=== PATIENT | female | born 1945 | race Hispanic/Latino ===

== ENCOUNTER 2019-02-21 07:46 | Day surgery (SDC) | payer MEDICARE ==
[~2019-02-21] VITALS: Ht 160 cm; Wt 115.2 kg
[~2019-02-21 07:46] MED LIST: ALBU8.5H8 IH; CHOL200059 PO; LEVO150T11 PO; OMEP40CA37 PO; SODIUM CHLORIDE 0.9% 1000ML 1,000 ML IV ONE
[2019-02-21 08:50] VITALS: BP 121/68
[2019-02-21 11:03] VITALS: BP 104/50
[2019-02-21 11:08] VITALS: BP 131/70
[2019-02-21 11:15] VITALS: BP 142/72
[2019-02-21 11:28] VITALS: BP 149/73
[2019-02-21 11:35] VITALS: BP 138/72
== END 2019-02-21 11:40 | disposition home or self-care (01) ==
LOC: ENDO 07:46 → DAH 07:46 → ENDO 11:40
PROVIDERS: ATTEND Internal Medicine Gastroenterology
DX: K31.89 Other diseases of stomach and duodenum (principal); K21.9 Gastro-esophageal reflux disease without esophagitis; E03.9 Hypothyroidism, unspecified; J45.909 Unspecified asthma, uncomplicated; E11.9 Type 2 diabetes mellitus without complications; I10 Essential (primary) hypertension; G47.30 Sleep apnea, unspecified; J84.10 Pulmonary fibrosis, unspecified; Z90.49 Acquired absence of other specified parts of digestive tract; Z98.890 Other specified postprocedural states; Z88.5 Allergy status to narcotic agent; Z88.2 Allergy status to sulfonamides; Z91.041 Radiographic dye allergy status; Z79.899 Other long term (current) drug therapy; Z87.01 Personal history of pneumonia (recurrent); Z88.3 Allergy status to other anti-infective agents; Z83.3 Family history of diabetes mellitus; Z80.0 Family history of malignant neoplasm of digestive organs; Z82.5 Family history of asthma and other chronic lower respiratory diseases; Z82.49 Family history of ischemic heart disease and other diseases of the circulatory system
CPT/HCPCS: 43238; 88108; 88305; A4215; A4606; J7030; 43242

== ENCOUNTER 2022-11-21 10:07 | Emergency (ER) | payer OTHER ==
[~2022-11-21] VITALS: Ht 157.5 cm; Wt 105.2 kg
[~2022-11-21 10:07] MED LIST changes: +D-ME1POW16 PO; +OMEP40CA21 PO; -OMEP40CA37 PO; -SODIUM CHLORIDE 0.9% 1000ML 1,000 ML IV ONE
[2022-11-21] MEDS ORDERED: KETOROLAC 30MG VIAL (30MG/ML) IVP ONE (10:30)
[2022-11-21 10:47] LABS: BASOPHILS % (AUTO) 0.4 % (0.0-5.0); HEMATOCRIT 43.7 % (36-48); LYMPHOCYTES % (AUTO) 39.4 % (21.0-51.0); MEAN CORPUSCULAR HEMOGLOBIN 31.3 pg (27.0-33.0); MEAN CORPUSCULAR HGB CONC 32.5 g/dL (32.0-36.0); MEAN CORPUSCULAR VOLUME 96.5 fL (79-99); MONOCYTES % (AUTO) 6.4 % (3.0-13.0); NEUTROPHILS % (AUTO) 52.2 % (40.0-77.0); PLATELET COUNT (AUTO) 233 K/uL (130-400); RED BLOOD CELL COUNT(AUTO) 4.53 MIL/uL (4.00-5.50); RED CELL DISTRIBUTION WIDTH 13.8 % (11.0-15.5); WHITE BLOOD COUNT (AUTO) 9.3 K/uL (4.8-10.8)
[2022-11-21 11:12] LABS: ALBUMIN 3.5 g/dL (3.5-5.0); CREATININE 1.2 mg/dL (0.5-1.5); POTASSIUM 4.4 mmol/L (3.5-5.1); TOTAL PROTEIN, SERUM 6.7 g/dL (6.0-8.3)
[2022-11-21 11:14] LABS: B-TYPE NATRIURETIC PEPTIDE 49 pg/mL (0-100)
[2022-11-21 11:41] VITALS: BP 118/57
[2022-11-21] MEDS ORDERED: LORA-868 PO (12:03)
[2022-11-21] MEDS ORDERED: OSEL75 PO (12:03)
[2022-11-21] MEDS ORDERED: IBUP-1493 PO (12:03)
== END 2022-11-21 12:23 | disposition home or self-care (01) ==
LOC: EDH 10:07
DX: U07.1 COVID-19 (principal); J10.1 Influenza due to other identified influenza virus with other respiratory manifestations; F41.9 Anxiety disorder, unspecified; J44.9 Chronic obstructive pulmonary disease, unspecified; E03.9 Hypothyroidism, unspecified; E66.01 Morbid (severe) obesity due to excess calories; K21.9 Gastro-esophageal reflux disease without esophagitis; Z88.2 Allergy status to sulfonamides; Z88.5 Allergy status to narcotic agent; Z88.8 Allergy status to other drugs, medicaments and biological substances; Z20.822 Contact with and (suspected) exposure to COVID-19
CPT/HCPCS: 99285; 96374; 70450; 87635; 84484; 80053; 83880; 85025; 87804 ×2; 36415; 72040; 93005; C9803; J1885

== ENCOUNTER 2023-04-26 08:55 | Emergency (ER) | payer OTHER ==
[~2023-04-26] VITALS: Ht 162.6 cm; Wt 104.3 kg
[~2023-04-26 08:55] MED LIST changes: +IBUP-1493 PO; +LORA-868 PO; +OSEL75 PO
[2023-04-26 09:35] LABS: BASOPHILS # (AUTO) 0.03 K/uL (0.00-0.20); BASOPHILS % (AUTO) 0.5 % (0.0-5.0); EOSINOPHILS # (AUTO) 0.04 K/uL (0.00-0.70); EOSINOPHILS % (AUTO) 0.6 % (0.0-8.0); HEMATOCRIT 38.2 % (36-48); IMMATURE GRANULOCYTE ABSOLUTE 0.03 K/uL (0-1); LYMPHOCYTES # (AUTO) 1.7 K/uL (1.0-4.8); LYMPHOCYTES % (AUTO) 26.4 % (21.0-51.0); MEAN CORPUSCULAR HEMOGLOBIN 31.8 pg (27.0-33.0); MEAN CORPUSCULAR HGB CONC 33.2 g/dL (32.0-36.0); MEAN CORPUSCULAR VOLUME 95.5 fL (79-99); MONOCYTES # (AUTO) 0.4 K/uL (0.1-1.0); NEUTROPHILS # (AUTO) 4.3 K/uL (1.8-7.7); PLATELET COUNT (AUTO) 157 K/uL (130-400); RED CELL DISTRIBUTION WIDTH 13.8 % (11.0-15.5); WHITE BLOOD COUNT (AUTO) 6.5 K/uL (4.8-10.8)
[2023-04-26 09:40] LABS: APPEARANCE,URINE CLEAR (CLEAR); BILIRUBIN,URINE NEGATIVE (NEGATIVE); COLOR,URINE LIGHT-YELLOW (YELLOW); GLUCOSE, URINE (UA) NEGATIVE (NEGATIVE); KETONES,URINE NEGATIVE (NEGATIVE); LEUKOCYTE ESTERASE ,URINE NEGATIVE Leu/uL (NEGATIVE); NITRATE,URINE NEGATIVE (NEGATIVE); OCCULT BLOOD,URINE NEGATIVE (NEGATIVE); PROTEIN,URINE NEGATIVE (NEGATIVE)
[2023-04-26 09:44] LABS: CREATININE 1.1 mg/dL (0.5-1.5); POTASSIUM 4.5 mmol/L (3.5-5.1)
[2023-04-26 09:48] LABS: ALBUMIN 3.8 g/dL (3.5-5.0); BILIRUBIN,TOTAL 0.7 mg/dL (0.2-1.0); CRP QUANTITATIVE 19.2 mg/L (0.00-9.0); TOTAL PROTEIN, SERUM 7.6 g/dL (6.0-8.3)
[2023-04-26 09:50] LABS: ADD UA MICROSCOPIC NO
[2023-04-26] MEDS ORDERED: ONDANSETRON 4MG INJ IVP ONE (10:00)
[2023-04-26] MEDS ORDERED: LORAZEPAM 1 MG TABLET PO ONE (10:00)
[2023-04-26] MEDS ORDERED: FENTANYL CITRATE PF 50 MCG/1 ML 2ML VIAL IVP ONE (10:00)
[2023-04-26] MEDS ORDERED: CLOPIDOGREL 75MG TAB PO SCH (12:30)
[2023-04-26] MEDS ORDERED: ASPIRIN 81 MG EC TAB PO SCH (12:30)
[2023-04-26] MEDS ORDERED: LACTULOSE 20 GM/30 ML UDCUP ONE (13:35)
[2023-04-26] MEDS ORDERED: LACTULOSE 20 GM/30 ML UDCUP PO ONE (14:00)
[2023-04-26 17:11] VITALS: BP 112/67; PULSE 59; RESP 18; O2SAT 98
[2023-04-26] MEDS ORDERED: ATORVASTATIN 40 MG TABLET PO SCH (21:00)
== END 2023-04-26 17:14 | disposition home or self-care (01) ==
LOC: EDH 08:55
DX: R51.9 Headache, unspecified (principal); R10.31 Right lower quadrant pain; J45.909 Unspecified asthma, uncomplicated; Z79.899 Other long term (current) drug therapy; Z88.5 Allergy status to narcotic agent; Z88.8 Allergy status to other drugs, medicaments and biological substances; Z88.2 Allergy status to sulfonamides; Z90.49 Acquired absence of other specified parts of digestive tract
CPT/HCPCS: 99285; 70551; 70450; 71045; 83735; 84484; 80053; 83690; 85025; 85651; 82948; 86140; 81003; 36415; 74176; 93005; J3010; J2405

== ENCOUNTER → 2024-05-01 | Outpatient (CLI) | payer OTHER | END | disposition home or self-care (01) | LOC: RAH 10:42 | PROVIDERS: ATTEND Family Medicine | DX: J32.0 Chronic maxillary sinusitis (principal); G44.52 New daily persistent headache (NDPH); G45.9 Transient cerebral ischemic attack, unspecified; Z86.73 Personal history of transient ischemic attack (TIA), and cerebral infarction without residual deficits | CPT/HCPCS: 70551 ==

== ENCOUNTER 2025-02-20 01:04 | Emergency (ER) | payer OTHER ==
--- NOTE | 2025-02-20 01:10 | NUR ---
CALLED FOR PT IN LOBBY TO TRIAGE. NO ANSWER. PT NOT FOUND IN LOBBY.
== END 2025-02-20 01:18 | disposition left against medical advice (07) ==
LOC: EDH 01:04
DX: M79.89 Other specified soft tissue disorders (principal); Z53.21 Procedure and treatment not carried out due to patient leaving prior to being seen by health care provider

== ENCOUNTER 2025-06-23 09:22 | Observation (INO) | payer OTHER ==
[~2025-06-23] VITALS: Ht 157.5 cm; Wt 91.9 kg
--- NOTE | 2025-06-23 09:48 | ERN ---
General Chief Complaint: Abdominal Pain Stated Complaint: LEFT SIDED CHEST PAIN Time Seen by MD: 09:26 History of Present Illness Initial Comments 80-year-old female who presents for left-sided chest pain/upper abdominal pain. Patient reports yesterday 06/22/2025 around 3:00 p.m. she noticed some left- sided chest discomfort in the lower left chest wall. She felt a bit dizzy at the time. She woke up this morning she feels like the pain is worse. Decreased oral intake because she does not feel hungry. No nausea or vomiting. No fevers. No dyspnea. No cough congestion. No diarrhea dysuria or flank pain. No back pain. She has never felt this pain before. Medical history: Obesity, dyslipidemia Surgical history: Cholecystectomy, C-sections Allergies: Coded Allergies: Sulfa (Sulfonamide Antibiotics) (Unverified Allergy, Unknown, 09/25/15) codeine (Unverified Allergy, Unknown, 09/25/15) iodine (Unverified Allergy, Unknown, 09/25/15) Home Meds Active Scripts Oseltamivir Phosphate (Tamiflu) 75 Mg Cap, 75 MG PO Q12H for 5 Days, #10 CAP Prov:KVNG STAHL MD 11/21/22 Ibuprofen (Motrin/Advil) 800 Mg Tab, 800 MG PO Q6HPRN PRN for FEVER, #12 TAB Prov:KVNG STAHL MD 11/21/22 Loratadine/Pseudoephedrine (Claritin-D 24 Hour Tablet) 1 Each Tab.er.24h, 1 EACH PO DAILY for 10 Days, #10 TAB Prov:KVNG STAHL MD 11/21/22 Albuterol Sulfate (Proair Hfa) 8.5 Gm Hfa.aer.ad, 2 PUFF IH QID, #1 INHALER Prov:LEIA BURDEN 04/21/22 D-Methorphan/PE/Acetaminophen (Theraflu Ms Severe Cold Pckt) 1 Each Powd.pack, 1 EACH PO QID, #20 PACK Prov:LEIA BURDEN 04/21/22 Reported Medications Cholecalciferol (Vitamin D3) (Vitamin D-3) 2,000 Unit Tablet, 2000 UNIT PO 3XWK, TAB 02/20/19 Omeprazole (Omeprazole) 40 Mg Capsule.dr, 40 MG PO DAILY, CAP 6/18/19 Albuterol Sulfate (Proair Hfa) 8.5 Gm Hfa.aer.ad, 1 INH IH Q4HPRN PRN for SHORTNESS OF BREATH/WHEEZING 09/25/15 Levothyroxine Sodium (Levothyroxine Sodium) 150 Mcg Tablet, 150 MCG PO ACBKFST, #30 09/25/15 Past Medical History Past Medical History: Asthma, Diabetes-Type II, Hypothyroid Medical History Other: Morbidly obese Past Surgical History: Tonsillectomy, Cholecystectomy, Surgical History Other: RT HAND SX, NECK FUSION Family History Family History: Negative Social History Social History: Lives with family ROS Dictation CONSTITUTIONAL: No chills, no fever, no weakness, no diaphoresis, no malaise. HEAD/FACE: No signs of trauma. EENT: No eye pain, no blurred vision, no tearing, no double vision, no ear pain, no ear discharge, no nose pain, no nasal congestion, no throat pain, no throat swelling, no mouth pain. RESPIRATORY: No cough, no orthopnea, no SOB, no stridor, no wheezing. CARDIOVASCULAR: Left-sided chest pain GASTROINTESTINAL/ABDOMINAL: Sudden abdominal wall pain GENITOURINARY: No abnormal discharge, no dysuria, no frequent urination, no hematuria. No complaints of pain in the genitals. MUSCULOSKELETAL: No back pain, no gout, no joint pain, no joint swelling, no muscle pain, no muscle stiffness, no neck pain. INTEGUMENTARY: No change in color, no change in hair/nails, no dryness, no lesion, no lumps, no rash. NEUROLOGICAL/PSYCH: No anxiety, not depressed, no emotional problem, no headache, no numbness, no pre-existing deficit, no history of seizures, no t remors, no weakness. HEMATOLOGIC/LYMPHATIC: Not anemic, no history of blood clots, no apparent bleeding, no bruising, glands not swollen. All Systems Negative, Except as Noted. Physical Exam Physical Exam Dictation VITAL SIGNS: Reviewed. GENERAL APPEARANCE: Alert, oriented x3, no acute distress, obese. HEAD AND FACE: Non-traumatic. EYES: PERRL, pink conjunctivas, eyelid no trauma, anterior chamber clear. EARS: Pinnas intact and no signs of trauma or erythema. Ear canals clear and no discharge. TMs no erythema. NOSE: No discharge, no bleeding. OROPHARYNX: Mouth normal, teeth no caries, tongue pink. Pharynx clear, no erythema. Tonsils no exudates, no abscesses noted. Mucous membrane moist. NECK: Supple, non-tender, no thyromegaly, no masses, no JVD, no bruits. BREAST: Deferred. CHEST: No tenderness, no crepitus, no paradoxical movement, no retractions. Left chest wall tenderness skin is normal LUNGS: Clear, well-ventilated, symmetric, no rales, no wheezing, no rhonchi, no stridor, good breath sounds bilaterally. HEART: Regular rate, regular rhythm, no murmur, no gallops. VASCULAR: No peripheral edema. ABDOMEN: Soft, positive bowel sounds, nondistended, no guarding, nontender, no rebound, no masses no hepatomegaly, no splenomegaly, no Lu's sign, no hernias. RECTAL: Deferred. GENITAL: Deferred. NEUROLOGICAL: Normal speech, gross motor function intact, gross sensory function intact. MUSCULOSKELETAL: Neck nontender, full range of motion, back nontender, full range of motion. EXTREMITIES: Nontender, full range of motion. SKIN: Color pink, dry, no turgor, no rash, no lacerations, no abrasions, no contusions. LYMPHATICS: Deferred. Results Laboratory and Microbiology Lab and Micro Result Laboratory Tests Test 06/23/25 09:42 06/23/25 10:31 06/23/25 11:16 White Blood Count 5.2 K/uL (4.8-10.8) Red Blood Count 3.64 MIL/uL (4.00-5.50) L Hemoglobin 11.8 g/dL (12.0-16.0) L Hematocrit 35.2 % (36-48) L Mean Corpuscular Volume 96.7 fL (79-99) Mean Corpuscular Hemoglobin 32.4 pg (27.0-33.0) Mean Corpuscular Hemoglobin Concent 33.5 g/dL (32.0-36.0) Red Cell Distribution Width 13.3 % (11.0-15.5) Platelet Count 174 K/uL (130-400) Mean Platelet Volume 9.2 fL (7.5-10.5) Immature Granulocyte % (Auto) 0.2 % (0-1) Neutrophils (%) (Auto) 50.4 % (40.0-77.0) Lymphocytes (%) (Auto) 38.9 % (21.0-51.0) Monocytes (%) (Auto) 6.2 % (3.0-13.0) Eosinophils (%) (Auto) 3.7 % (0.0-8.0) Basophils (%) (Auto) 0.6 % (0.0-5.0) Neutrophils # (Auto) 2.6 K/uL (1.8-7.7) Lymphocytes # (Auto) 2.0 K/uL (1.0-4.8) Monocytes # (Auto) 0.3 K/uL (0.1-1.0) Eosinophils # (Auto) 0.19 K/uL (0.00-0.70) Basophils # (Auto) 0.03 K/uL (0.00-0.20) Absolute Immature Granulocyte (auto 0.01 K/uL (0-1) Nucleated Red Blood Cells 0.0 % (0.0-0.19) Prothrombin Time 10.7 SEC (9.6-11.6) Prothromb Time International Ratio 1.01 (0.85-1.15) Activated Partial Thromboplast Time 29.4 SEC (26.3-35.5) D-Dimer Quantitative (PE/DVT) 1407 ng/mL (0-500) *H Sodium Level 144 mmol/L (136-145) Potassium Level 3.8 mmol/L (3.5-5.1) Chloride Level 108 mmol/L (101-111) Carbon Dioxide Level 26 mmol/L (21-32) Blood Urea Nitrogen 15 mg/dL (7-18) Creatinine 1.3 mg/dL (0.5-1.0) H Glomerular Filtration Rate Calc 42 mL/min (>90) Random Glucose 87 mg/dL (70-105) Total Calcium 9.1 mg/dL (8.5-10.1) Magnesium Level 2.00 mg/dL (1.80-2.40) Total Bilirubin 0.7 mg/dL (0.2-1.0) Direct Bilirubin 0.2 mg/dL (0.0-0.3) Aspartate Amino Transf (AST/SGOT) 35 U/L (10-37) Alanine Aminotransferase (ALT/SGPT) 25 U/L (12-78) Alkaline Phosphatase 96 U/L (50-136) Troponin I High Sensitivity 6 ng/L (4-50) 6 ng/L (4-50) B-Type Natriuretic Peptide 172 pg/mL (0-100) H Total Protein 6.6 g/dL (6.0-8.3) Albumin 3.4 g/dL (3.5-5.0) L Lipase 35 U/L (16-77) Lactic Acid Level 1.9 mmol/L (0.8-2.5) MDM CC: L sided CP, L sided upper abd pain Historian: patient Comorbidities: obesity, DLD Limitations: none Ddx: ACS, PE, TAD, abd pathology Vital signs: Stable, remained stable EKG: Sinus rhythm, rate 68, normal axis, good R-wave progression, intervals are stable no STEMI. CBC normal, chemistry normal, troponin x2 normal, BNP normal, lipase normal, coags stable D-dimer elevated. Chest x-ray per my independent interpretation shows no cardiomegaly pleural effusions focal infiltrates. CT abdomen and pelvis without contrast shows no acute abnormalities. Patient has a an elevated D-dimer and had chest pain, concern for PE. She is allergic to iodine. V/Q scan ordered. Patient likely needs further cardiac workup. We will admit. Consultation: Hospitalist for admission. ED Course Orders Procedure Category Date Status Time Cbc With Differential LAB 06/23/25 Complete 09:28 Prothrombin Time With LAB 06/23/25 Complete INR 09:28 Chest 1vw RAD 06/23/25 Resulted 09:28 12 Lead Ekg Tracing- EKG 06/23/25 Complete Technical 09:28 Troponin I High LAB 06/23/25 Complete Sensitivity 09:28 Partial LAB 06/23/25 Complete Thromboplastin Time 09:28 B-Type Natriuretic LAB 06/23/25 Complete Peptide 09:28 Hepatic Function Panel LAB 06/23/25 Complete 09:31 Lipase LAB 06/23/25 Complete 09:31 D-Dimer LAB 06/23/25 Complete 09:31 Aspirin 325mg Tab PHA 06/23/25 Complete (Aspirin 325mg Tab) 10:00 Morphine 4mg Syg PHA 06/23/25 Complete (Morphine 4mg Syg) 10:00 Lactated Ringers PHA 06/23/25 Complete 1000ml (Lactated 10:00 Basic Metabolic Panel LAB 06/23/25 Complete 09:31 Magnesium LAB 06/23/25 Complete 09:31 Urinalysis Profile LAB 06/23/25 Logged 10:06 Troponin I High LAB 06/23/25 Complete Sensitivity 10:20 Ct Abdomen/Pelvis W/O CT 06/23/25 Taken Contrast 10:43 Lactic Acid LAB 06/23/25 Complete 10:44 Nm Pulmonary/Lung NM 06/23/25 Logged Vent/Perf Vq 11:02 Current Medications Medications (Trade) Dose Ordered Sig/[place] Route PRN Reason Start Time Stop Time Status Last Admin Dose Admin Aspirin (Aspirin 325mg Tab) 325 mg ONCE ONCE PO 06/23/25 10:00 06/23/25 10:01 DC 06/23/25 10:10 Lactated Ringer's 1,000 ml @ 0 mls/hr ONCE ONCE IV 06/23/25 10:00 06/23/25 10:01 DC 06/23/25 10:10 Morphine Sulfate (morPHINE 4MG SYG) 4 mg ONCE ONCE IVP 06/23/25 10:00 06/23/25 09:54 DC Vital Signs Date Time Temp Pulse Resp B/P (MAP) Pulse Ox O2 Delivery O2 Flow Rate FiO2 06/23/25 09:52 97.5 58 13 130/63 98 Room Air* 0 21 06/23/25 09:25 97.3 73 19 131/60 97 Room Air 0 DX & DISP Disposition: Inpatient Departure Impression: Primary Impression: Left-sided chest pain Condition: Stable Referrals: SONIA RICE MD (PCP) MAXIMO WAGONER DO Jun 23, 2025 09:48
[2025-06-23 09:52] LABS: IMMATURE GRANULOCYTE ABSOLUTE 0.01 K/uL (0-1); NUCLEATED RED BLOOD CELLS 0.0 % (0.0-0.19); PLATELET COUNT (AUTO) 174 K/uL (130-400); RED BLOOD CELL COUNT(AUTO) 3.64 MIL/uL (4.00-5.50); RED CELL DISTRIBUTION WIDTH 13.3 % (11.0-15.5); WHITE BLOOD COUNT (AUTO) 5.2 K/uL (4.8-10.8)
[2025-06-23 10:05] LABS: CREATININE 1.3 mg/dL (0.5-1.0); GLOMERULAR FILTR. RATE CALC 42.0 mL/min (>90); GLUCOSE,RANDOM 87.0 mg/dL (70-105); INR 1.01 (0.85-1.15); SODIUM SERUM 144.0 mmol/L (136-145); UREA NITROGEN, BLOOD 15.0 mg/dL (7-18)
[2025-06-23 10:09] LABS: ASPARTATE AMINOTRANSFERASE 35.0 U/L (10-37); TOTAL PROTEIN, SERUM 6.6 g/dL (6.0-8.3)
[2025-06-23] MEDS: ASPIRIN 325MG TAB PO ONE (10:10)
[2025-06-23] MEDS: LACTATED RINGERS 1000ML 1,000 ML IV ONE (10:10)
--- NOTE | 2025-06-23 10:29 | EKG ---
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
--- NOTE | 2025-06-23 10:45 | NUR ---
CT EXAMS ON HOLD UNTIL FURTHER NOTICE: PER ER NURSE, PATIENT ALLERGIC TO IODINE.
--- NOTE | 2025-06-23 11:58 | HMCIMG ---
EXAM: CR Chest, 1 View. CLINICAL HISTORY: CP COMPARISON: None provided. FINDINGS: LUNGS: The lungs show no infiltrate or other acute finding. PLEURAL SPACES: No pleural effusion or pneumothorax. MEDIASTINUM: The cardiomediastinal silhouette is within normal limits. BONES: No acute osseous abnormality. IMPRESSION: No acute cardiopulmonary pathology is evident. /[place]
--- NOTE | 2025-06-23 12:38 | HMCIMG ---
EXAM: CT Abdomen and Pelvis Without IV contrast CLINICAL HISTORY: L sided upper abd/lower chest pain TECHNIQUE: Axial computed tomography images of the abdomen and pelvis without intravenous contrast. CONTRAST: No IV contrast. COMPARISON: None provided. FINDINGS: LUNG BASES: The lung bases show bibasilar atelectasis. No pleural effusions are seen. LIVER: Unremarkable. Multiple tiny calcific foci along both lobes of liver. GALLBLADDER AND BILE DUCTS: The gallbladder is surgically absent. No biliary ductal dilatation is evident. PANCREAS: Unremarkable. SPLEEN: Unremarkable. Multiple tiny calcific foci in splenic parenchyma. ADRENAL GLANDS: 1.2 cm sized hypodense nodule in left adrenal gland. Right adrenal gland appears unremarkable. KIDNEYS, URETERS, AND BLADDER: The kidneys appear within normal limits. There is no hydronephrosis or hydroureter. No urinary calculi are seen. STOMACH AND BOWEL: Scattered colonic diverticulosis without diverticulitis. Unremarkable appearance of the stomach and bowel. No evidence of bowel obstruction. APPENDIX: No evidence of acute appendicitis on CT examination. PERITONEUM: No free fluid. No free air. LYMPH NODES: No lymphadenopathy is evident. REPRODUCTIVE: Unremarkable as visualized. VASCULATURE: No evidence of abdominal aortic aneurysm. BONES: Degenerative changes along visualized spine. No aggressive appearing osseous lesion. No acute osseous pathology evident. IMPRESSION: 1. No acute intraabdominal or pelvic findings. 2. 1.2 cm indeterminate left adrenal nodule. /[place]
[2025-06-23 12:53] LABS: ADD UA MICROSCOPIC NO; APPEARANCE,URINE CLEAR (CLEAR); GLUCOSE, URINE (UA) NEGATIVE (NEGATIVE); LEUKOCYTE ESTERASE ,URINE NEGATIVE Leu/uL (NEGATIVE); NITRATE,URINE NEGATIVE (NEGATIVE); OCCULT BLOOD,URINE NEGATIVE (NEGATIVE)
[2025-06-23] MEDS ORDERED: BENZOCAINE/MENTH/CETYLPYRD CL 1 EACH LOZENGE MM PRN (13:00)
[2025-06-23] MEDS ORDERED: LACTULOSE 20 GM/30 ML UDCUP PO PRN (13:00)
[2025-06-23] MEDS ORDERED: LOPERAMIDE HCL 2 MG CAP PO PRN (13:00)
[2025-06-23] MEDS ORDERED: ARTIFICAL TEARS SOL 15 ML OP PRN (13:00)
[2025-06-23] MEDS ORDERED: guaiFENesin-DM 200/20MG 10ML PO PRN (13:00)
[2025-06-23] MEDS ORDERED: NITROGLYCERIN 0.4 MG SL TAB SL PRN (13:00)
[2025-06-23] MEDS: 0.9%NACL 1000ML 1,000 ML IV SCH (13:54)
--- NOTE | 2025-06-23 15:33 | NUR ---
ATTEMPTED TO CALL NUCLEAR MED FOR VQ SCAN AND NO RESPONSE PATIENT RESTING IN BED, CALL LIGHT IN REACH
--- NOTE | 2025-06-23 16:30 | HP ---
[facility] HISTORY & PHYSICAL Date Patient Seen: Jun 23, 2025 Time of Visit: 16:29 Supervising Physician: Dr. Burke Son Primary Care Physician: Dr. Oswald Gilliland Outpatient Specialists: Dr. 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 Oswald Gilliland, health history: Dementia, hypothyroidism, recent diagnosis of acute complicated cystitis, morbid obesity,, gastritis and GI delayed emptying syndrome presents to the emergency department today, 06/23/2025 with severe intractable abdominal pain. Patient and patient's family reports the onset was in the past four days time patient has onto [facility] was clinically worked up in the emergency department acute complicated cystitis per prescribed antibiotic 300 mg p.o. b.i.d. for five days. Patient describes intense pain nauseousness right after eating. Patient denies liver diseases, gallbladder, has had lap melissa in the past pancreatitis cast duodenal and gastric ulcers as well as GERD. The patient reports that she sees Dr. Akbar Fajardo at [facility]. Vital signs: Temperature 97.5, pulse 58, respirations 18, oxygen saturation 98% room air FiO2 21, blood pressure 130/63. WBC 5.2, hemoglobin 11.8, hematocrit 35.2%, platelets 174,, sodium 144, potassium 3.8, CO2 26, BUN 15, creatinine 1.30, GFR 42, random blood glucose 87, albumin 3.4, and alkaline phos 96. Urine for UA results: Leukocyte esterase negative, nitrate negative, ketones negative.. CXR results: No acute cardiopulmonary disease process evident CT abdomen without contrast: No acute intra-abdominal or pelvic findings. 1.2 cm indeterminate left adrenal nodule. Stomach scattered colonic diverticulosis without diverticulitis unremarkable appearance of stomach and bowel no evidence of bowel obstruction. PLAN; Telemetry. Diet clear liquids Consult Dr. Akbar Fajardo at [facility] Protonix 40 mg p.o. daily Carafate 1 G p.o. t.i.d. Review and reconcile patient's home medications SARAH, initial 500 mL bolus then NS 75 mL/HR for one bag Elevated D-dimer 1407 Wells score 0, no need to further assess to rule out a PE CT abdomen without contrast: Stomach colonic diverticulosis without diverti culitis. No small bowel obstruction. Left adrenal nodule 1.2 cm. CXR one view no cardiopulmonary processes evident GI and DVT prophylaxis A.m. labs ordered for tomorrow. PAST MEDICAL HX: see above PAST SURGICAL HX: noncontributory SOCIAL HISTORY: No tobacco, ETOH, or illicit drug use Coded Allergies: Sulfa (Sulfonamide Antibiotics) (Unverified Allergy, Unknown, 09/25/15) codeine (Unverified Allergy, Unknown, 09/25/15) iodine (Unverified Allergy, Unknown, 09/25/15) REVIEW OF SYSTEMS: 12 point ROS reviewed with patient. Pertinent positives mentioned above. Otherwise negative. PHYSICAL EXAM: GENERAL: alert, weak, awake oriented x 3 HEENT: EOMI, Sclera non icteric, moist mucosa NECK: Supple, no JVD, trachea midline LUNGS: Clear breath sounds bilaterally. No wheezes HEART: Regular rate and rhythm. Normal S1 and S2, without murmurs ABD: Abdomen soft, nontender. Bowel sounds presen tenderness left lower quadrant. EXT: No clubbing cyanosis or edema bilateral lower extremities warm to touch with edema NEURO: Alert and oriented to person, follows commands Vital Signs (last 8hr) Date Time Temp Pulse Resp B/P (MAP) Pulse Ox O2 Delivery O2 Flow Rate FiO2 06/23/25 12:36 97.5 52 15 123/52 99 Room Air* 0 21 06/23/25 09:52 97.5 58 13 130/63 98 Room Air* 0 21 06/23/25 09:25 97.3 73 19 131/60 97 Room Air 0 LABS: Hematology Labs: Test 06/23/25 09:42 Range/Units White Blood Count 5.2 4.8-10.8 K/uL Red Blood Count 3.64 L 4.00-5.50 MIL/uL Hemoglobin 11.8 L 12.0-16.0 g/dL Hematocrit 35.2 L 36-48 % Mean Corpuscular Volume 96.7 79-99 fL Mean Corpuscular Hemoglobin 32.4 27.0-33.0 pg Mean Corpuscular Hemoglobin Concent 33.5 32.0-36.0 g/dL Red Cell Distribution Width 13.3 11.0-15.5 % Platelet Count 174 130-400 K/uL Mean Platelet Volume 9.2 7.5-10.5 fL Immature Granulocyte % (Auto) 0.2 0-1 % Neutrophils (%) (Auto) 50.4 40.0-77.0 % Lymphocytes (%) (Auto) 38.9 21.0-51.0 % Monocytes (%) (Auto) 6.2 3.0-13.0 % Eosinophils (%) (Auto) 3.7 0.0-8.0 % Basophils (%) (Auto) 0.6 0.0-5.0 % Neutrophils # (Auto) 2.6 1.8-7.7 K/uL Lymphocytes # (Auto) 2.0 1.0-4.8 K/uL Monocytes # (Auto) 0.3 0.1-1.0 K/uL Eosinophils # (Auto) 0.19 0.00-0.70 K/uL Basophils # (Auto) 0.03 0.00-0.20 K/uL Absolute Immature Granulocyte (auto 0.01 0-1 K/uL Nucleated Red Blood Cells 0.0 0.0-0.19 % Chemistry Labs: Test 06/23/25 15:14 06/23/25 11:16 06/23/25 09:42 Range/Units Troponin I High Sensitivity 6 4-50 ng/L Lactic Acid Level 1.9 0.8-2.5 mmol/L Sodium Level 144 136-145 mmol/L Potassium Level 3.8 3.5-5.1 mmol/L Chloride Level 108 101-111 mmol/L Carbon Dioxide Level 26 21-32 mmol/L Blood Urea Nitrogen 15 7-18 mg/dL Creatinine 1.3 H 0.5-1.0 mg/dL Glomerular Filtration Rate Calc 42 >90 mL/min Random Glucose 87 70-105 mg/dL Total Calcium 9.1 8.5-10.1 mg/dL Magnesium Level 2.00 1.80-2.40 mg/dL Total Bilirubin 0.7 0.2-1.0 mg/dL Direct Bilirubin 0.2 0.0-0.3 mg/dL Aspartate Amino Transf (AST/SGOT) 35 10-37 U/L Alanine Aminotransferase (ALT/SGPT) 25 12-78 U/L Alkaline Phosphatase 96 50-136 U/L B-Type Natriuretic Peptide 172 H 0-100 pg/mL Total Protein 6.6 6.0-8.3 g/dL Albumin 3.4 L 3.5-5.0 g/dL Lipase 35 16-77 U/L Coagulation Labs: Test 06/23/25 09:42 Range/Units Prothrombin Time 10.7 9.6-11.6 SEC Prothromb Time International Ratio 1.01 0.85-1.15 Activated Partial Thromboplast Time 29.4 26.3-35.5 SEC D-Dimer Quantitative (PE/DVT) 1407 *H 0-500 ng/mL DIAGNOSTICS / RADIOLOGY RESULTS: REASON: CP ORDERING PHYSICIAN: MAXIMO WAGONER DO PROCEDURE: CXR1VW - CHEST 1VW EXAM: CR Chest, 1 View. CLINICAL HISTORY: CP COMPARISON: None provided. FINDINGS: LUNGS: The lungs show no infiltrate or other acute finding. PLEURAL SPACES: No pleural effusion or pneumothorax. MEDIASTINUM: The cardiomediastinal silhouette is within normal limits. BONES: No acute osseous abnormality. IMPRESSION: No acute cardiopulmonary pathology is evident. /[place] DICTATED BY: TORRI BURGESS MD DATE: 06/23/25 1257 ELECTRONICALLY SIGNED BY: TORRI BURGESS MD DATE: 06/23/25 1257 REASON: L sided upper abd/lower chest pain ORDERING PHYSICIAN: MAXIMO WAGONER DO PROCEDURE: ABD PEL WO - CT ABDOMEN/PELVIS W/O CONTRAST EXAM: CT Abdomen and Pelvis Without IV contrast CLINICAL HISTORY: L sided upper abd/lower chest pain TECHNIQUE: Axial computed tomography images of the abdomen and pelvis without intravenous contrast. CONTRAST: No IV contrast. COMPARISON: None provided. FINDINGS: LUNG BASES: The lung bases show bibasilar atelectasis. No pleural effusions are seen. LIVER: Unremarkable. Multiple tiny calcific foci along both lobes of liver. GALLBLADDER AND BILE DUCTS: The gallbladder is surgically absent. No biliary ductal dilatation is evident. PANCREAS: Unremarkable. SPLEEN: Unremarkable. Multiple tiny calcific foci in splenic parenchyma. ADRENAL GLANDS: 1.2 cm sized hypodense nodule in left adrenal gland. Right adrenal gland appears unremarkable. KIDNEYS, URETERS, AND BLADDER: The kidneys appear within normal limits. There is no hydronephrosis or hydroureter. No urinary calculi are seen. STOMACH AND BOWEL: Scattered colonic diverticulosis without diverticulitis. Unremarkable appearance of the stomach and bowel. No evidence of bowel obstruction. APPENDIX: No evidence of acute appendicitis on CT examination. PERITONEUM: No free fluid. No free air. LYMPH NODES: No lymphadenopathy is evident. REPRODUCTIVE: Unremarkable as visualized. VASCULATURE: No evidence of abdominal aortic aneurysm. BONES: Degenerative changes along visualized spine. No aggressive appearing osseous lesion. No acute osseous pathology evident. IMPRESSION: 1. No acute intraabdominal or pelvic findings. 2. 1.2 cm indeterminate left adrenal nodule. /[place] DICTATED BY: TORRI BURGESS MD DATE: 06/23/251336 ELECTRONICALLY SIGNED BY: TORRI BURGESS MD DATE: 06/23/251336 PLAN NEURO: Minimize central acting medications as possible. Maintain fall precautions, adequate lighting during the day PULMONARY: Supplemental 02 as needed. Maintain aspiration precautions at all times CARDIOVASCULAR: Follow hemodynamics. Vital signs per facility protocol GI & NUTRITION: Continue with nutritional support. Continue stool softeners and laxatives as needed. KIDNEYS & ELECTROLYTES: Strict monitoring of intake, output and overall fluid balance. Avoid nephrotoxic medications to the extent possible. Medications to be dosed according to renal function. Monitor electrolytes and replace as needed ENDOCRINE: Maintain blood glucose between 100-180 at all times. Hypoglycemia protocol in place INFECTIOUS DISEASE: Trend temperature, WBC and procalcitonin level Follow cultures, deescalate antibiotics as soon as possible. Panculture if new onset fever ONCOLOGY/HEMATOLOGY/COAGULATION: Monitor for s/s of bleeding Monitor hemoglobin, coagulation studies as needed SKIN: Pressure ulcer prevention per facility protocol Specialty mattress ORTHO/REHAB: Continue PT/OT Prophylaxis: Continue GI and DVT prophylaxis Code Status: Full Resuscitation Disposition: TBD Other: Total patient care time exceeds 35 minutes excluding all procedures. SIM CISNEROS AGACNP Jun 23, 2025 16:30
[2025-06-23] MEDS ORDERED: FLUT1BLS3 IH (17:18)
[2025-06-23] MEDS ORDERED: MEMA10TA21 PO (17:18)
[2025-06-23] MEDS ORDERED: FURO40TA5 PO (17:18)
[2025-06-23] MEDS ORDERED: ATOR20TA65 PO (17:18)
[2025-06-23] MEDS ORDERED: LEVO112T7 PO (17:18)
[2025-06-23] MEDS ORDERED: DONE10TA43 PO (17:18)
[2025-06-23 17:40] VITALS: O2SAT 97
--- NOTE | 2025-06-23 17:40 | NUR ---
patient arrived on unit. no pain or distress on arrival. will continue to monitor.
--- NOTE | 2025-06-23 17:42 | NUR ---
PER SIM CISNEROS MANAGER EQUIPMENT, TO CANCEL VQ SCAN AND ORDE US VENOUS DOPPLER BILATERALLY TO R/O DVT REPORT GIVEN TO CAROL LOO LVN SENT WITH PATIENT
[2025-06-23 17:50] VITALS: O2SAT 97
[2025-06-23 18:05] VITALS: BP 114/68; PULSE 64; RESP 18; TEMP 97.6
[2025-06-23 19:50] VITALS: O2SAT 98
[2025-06-23] MEDS: MAG/ALUM/SIMETH 30 ML UDCUP PO PRN (19:57)
[2025-06-24 00:08] VITALS: BP 128/59; PULSE 60; RESP 18; TEMP 97.1
[2025-06-24 04:07] VITALS: BP 120/52; PULSE 59; RESP 18; TEMP 97.8
[2025-06-24 07:44] VITALS: O2SAT 99
[2025-06-24] MEDS: SUCRALFATE 1 GM TABLET PO SCH (08:10)
[2025-06-24 08:51] VITALS: BP 124/63; PULSE 90; RESP 16; TEMP 98
[2025-06-24 08:54] VITALS: BP 151/79; PULSE 75
[2025-06-24 11:14] VITALS: BP 132/57; PULSE 61; RESP 16; TEMP 97.9
[2025-06-24 11:36] LABS: IMMATURE GRANULOCYTE ABSOLUTE 0.01 K/uL (0-1); NUCLEATED RED BLOOD CELLS 0.0 % (0.0-0.19); PLATELET COUNT (AUTO) 151 K/uL (130-400); RED BLOOD CELL COUNT(AUTO) 3.40 MIL/uL (4.00-5.50); RED CELL DISTRIBUTION WIDTH 13.4 % (11.0-15.5); WHITE BLOOD COUNT (AUTO) 5.2 K/uL (4.8-10.8)
[2025-06-24 11:46] LABS: CREATININE 1.2 mg/dL (0.5-1.0); GLOMERULAR FILTR. RATE CALC 46.0 mL/min (>90); GLUCOSE,RANDOM 77.0 mg/dL (70-105); SODIUM SERUM 146.0 mmol/L (136-145); UREA NITROGEN, BLOOD 11.0 mg/dL (7-18)
[2025-06-24 11:51] LABS: ASPARTATE AMINOTRANSFERASE 29.0 U/L (10-37); TOTAL PROTEIN, SERUM 5.7 g/dL (6.0-8.3)
--- NOTE | 2025-06-24 13:52 | NUR ---
DCP: HOME Sw met with pt's Silver Sethi Jr [phone] who reports prior to admission pt was able to do "everything for herself". Pt able to complete ADLS on her own and uses no DME for ambulation or in the home. bathroom is handicapped equipped. No provider or HH services. PCP is Adan Gilliland and uses [facility] for rx needs. denies need for SNF, will take pt home at wi. Addendum: 06/24/25 at 1404 by EHSAN VELASQUEZ Amended: Links added.
--- NOTE | 2025-06-24 14:05 | DS ---
[facility] DISCHARGE SUMMARY Date Patient Seen: Jun 24, 2025 Time of Visit: 14:02 Supervising Physician: Dr. Amador Acosta Primary Care Physician: Dr. Oswald Gilliland Outpatient Specialists: Dr.Badiga VEGA at [facility] [place] Inpatient Consults: [ ] PROBLEM LIST: Severe intractable abdominal pain SARAH on ATN, resolved. Morbid obesity, BMI 37.1 Hypothyroidism Dementia Elevated D-dimer 1407 PE ruled out Wells score 0 Recently treated for acute complicated cystitis, at [facility] HOSPITAL COURSE: Patient was admitted to the hospital clinically worked up for her severe acute intractable abdominal pain, no source of the pain was identified per chest x-ray results, and CT abdomen/pelvis without contrast. The patient's vital signs are steady. Afebrile. And laboratory results are within limits. During the admission, the patient's spouse reached out to the GI specialists treating the patient, Dr. Abreu, GI specialists [facility], requested that the patient come in immediately. The patient has no acute bleeding at this time, nor any site has been identified as the source of the pain. Patient will be discharged educated to follow up with GI specialist, who has been treating the patient ongoing only and follow up with primary care provider Dr. Oswald Gilliland in 2-3 days for a wellness check. The patient verbalizes understanding with the plan. And has no questions at this time. HPI (per admitting provider) Carla Sethi, is an 80-year-old lady patient of Dr. Oswald Gilliland, health history: Dementia, hypothyroidism, recent diagnosis of acute complicated cystitis, morbid obesity,, gastritis and GI delayed emptying syndrome presents to the emergency department today, 06/23/2025 with severe intractable abdominal pain. Patient and patient's family reports the onset was in the past four days time patient has onto [facility] was clinically worked up in the emergency department acute complicated cystitis per prescribed antibiotic 300 mg p.o. b.i.d. for five days. Patient describes intense pain nauseousness right after eating. Patient denies liver diseases, gallbladder, has had lap melissa in the past pancreatitis cast duodenal and gastric ulcers as well as GERD. The patient reports that she sees Dr. Akbar Fajardo at [facility]. Vital signs: Temperature 97.5, pulse 58, respirations 18, oxygen saturation 98% room air FiO2 21, blood pressure 130/63. WBC 5.2, hemoglobin 11.8, hematocrit 35.2%, platelets 174,, sodium 144, potas sium 3.8, CO2 26, BUN 15, creatinine 1.30, GFR 42, random blood glucose 87, albumin 3.4, and alkaline phos 96. Urine for UA results: Leukocyte esterase negative, nitrate negative, ketones negative.. CXR results: No acute cardiopulmonary disease process evident CT abdomen without contrast: No acute intra-abdominal or pelvic findings. 1.2 cm indeterminate left adrenal nodule. Stomach scattered colonic diverticulosis without diverticulitis unremarkable appearance of stomach and bowel no evidence of bowel obstruction The patient was treated for the following problems: ACTIVE PROBLEM LIST FOR THE HOSPITALIZATION: Severe intractable abdominal pain SARAH on ATN, resolved. 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 CLINICAL HISTORY: CP COMPARISON: None provided. FINDINGS: LUNGS: The lungs show no infiltrate or other acute finding. PLEURAL SPACES: No pleural effusion or pneumothorax. MEDIASTINUM: The cardiomediastinal silhouette is within normal limits. BONES: No acute osseous abnormality. IMPRESSION: No acute cardiopulmonary pathology is evident. /[place] DICTATED BY: TORRI BURGESS MD DATE: 06/23/25 1257 ELECTRONICALLY SIGNED BY: TORRI BURGESS MD DATE: 06/23/25 1257 REASON: L sided upper abd/lower chest pain ORDERING PHYSICIAN: MAXIMO WAGONER DO PROCEDURE: ABD PEL WO - CT ABDOMEN/PELVIS W/O CONTRAST EXAM: CT Abdomen and Pelvis Without IV contrast CLINICAL HISTORY: L sided upper abd/lower chest pain TECHNIQUE: Axial computed tomography images of the abdomen and pelvis without intravenous contrast. CONTRAST: No IV contrast. COMPARISON: None provided. FINDINGS: LUNG BASES: The lung bases show bibasilar atelectasis. No pleural effusions are seen. LIVER: Unremarkable. Multiple tiny calcific foci along both lobes of liver. GALLBLADDER AND BILE DUCTS: The gallbladder is surgically absent. No biliary ductal dilatation is evident. PANCREAS: Unremarkable. SPLEEN: Unremarkable. Multiple tiny calcific foci in splenic parenchyma. ADRENAL GLANDS: 1.2 cm sized hypodense nodule in left adrenal gland. Right adrenal gland appears unremarkable. KIDNEYS, URETERS, AND BLADDER: The kidneys appear within normal limits. There is no hydronephrosis or hydroureter. No urinary calculi are seen. STOMACH AND BOWEL: Scattered colonic diverticulosis without diverticulitis. Unremarkable appearance of the stomach and bowel. No evidence of bowel obstruction. APPENDIX: No evidence of acute appendicitis on CT examination. PERITONEUM: No free fluid. No free air. LYMPH NODES: No lymphadenopathy is evident. REPRODUCTIVE: Unremarkable as visualized. VASCULATURE: No evidence of abdominal aortic aneurysm. BONES: Degenerative changes along visualized spine. No aggressive appearing osseous lesion. No acute osseous pathology evident. IMPRESSION: 1. No acute intraabdominal or pelvic findings. 2. 1.2 cm indeterminate left adrenal nodule. /[place] DICTATED BY: TORRI BURGESS MD DATE: 06/23/251336 ELECTRONICALLY SIGNED BY: TORRI BURGESS MD DATE: 06/23/251336 DISCHARGE MEDICATIONS: Pt hemodynamically stable and afebrile at time of discharge. PCP notified of patients admission, hospital course and discharge. PHYSICAL EXAM: GENERAL: alert, weak, awake oriented x 3 HEENT: EOMI, Sclera non icteric, moist mucosa NECK: Supple, no JVD, trachea midline LUNGS: Clear breath sounds bilaterally. No wheezes HEART: Regular rate and rhythm. Normal S1 and S2, without murmurs ABD: Abdomen soft, nontender. Bowel sounds presen tenderness left lower quadrant. EXT: No clubbing cyanosis or edema bilateral lower extremities warm to touch with edema NEURO: Alert and oriented to person, follows commands FOLLOW-UP: Dr. Oswald Gilliland Follow-up with PCP in 2-3 days Follow up : Dr. Lois VEGA at [facility] RECOMMENDATIONS: See Discharge Instructions This case was seen and discussed with my supervising physician. More than 45 minutes spent on discharge process, including evaluation of the patient, discussion with nursing staff, medication reconciliation and follow-up appointments [facility] Jun 24, 2025 14:05
--- NOTE | 2025-06-24 14:40 | NUR ---
PT sitting in bed w/ eyes open 0 s/s of distress noted A&Ox4 able to make needs known. Discharge instructions given to PT and @ bedside verbally and written. PT and verbally acknowledged understanding. I.V. removed intact w/o complications. PT escorted to POV via WC by PRODUCTION CONTROL MANAGER.
--- NOTE | 2025-06-25 08:16 | HMCIMG ---
EXAMINATION: SPECTRAL DOPPLER ULTRASOUND EXAMINATION OF THE BILATERAL LOWER EXTREMITY VEINS. CLINICAL HISTORY: To rule out DVT. COMPARISON: None provided. TECHNIQUE: Real-time ultrasound scan of the veins of the bilateral lower extremity with color Doppler flow, spectral waveform analysis and compression. FINDINGS: DEEP VEINS: The common femoral, superficial femoral, and popliteal veins are echolucent and compressible. There is normal color Doppler flow throughout. The visualized calf veins appear patent. SUPERFICIAL VEINS: The greater saphenous veins are patent and compressible. SOFT TISSUES: No popliteal fossa cyst or other abnormalities. IMPRESSION: No deep venous thrombosis evident in the bilateral lower extremity. No superficial thrombophlebitis in the bilateral lower extremity. /[place]
== END 2025-06-24 14:40 | disposition home or self-care (01) ==
LOC: EDH 09:22 → INTOOBSV 12:31 → UNDOADMOB 12:31 → EDHIP 12:31 → 4DH 17:40 → UNDODISOB 06-24 14:40
PROVIDERS: ADMIT Internal Medicine Pulmonary Disease; ATTEND Internal Medicine Pulmonary Disease
DX: R10.12 Left upper quadrant pain (principal); E66.01 Morbid (severe) obesity due to excess calories; E11.9 Type 2 diabetes mellitus without complications; E03.9 Hypothyroidism, unspecified; E78.5 Hyperlipidemia, unspecified; F03.90 Unspecified dementia, unspecified severity, without behavioral disturbance, psychotic disturbance, mood disturbance, and anxiety; J45.909 Unspecified asthma, uncomplicated; N17.0 Acute kidney failure with tubular necrosis; E27.8 Other specified disorders of adrenal gland; R07.89 Other chest pain; R42 Dizziness and giddiness; R60.0 Localized edema; Z68.37 Body mass index [BMI] 37.0-37.9, adult; Z98.1 Arthrodesis status; Z79.899 Other long term (current) drug therapy; Z98.890 Other specified postprocedural states
CPT/HCPCS: 99285; 96361 ×3; 74176; 93970; 96374; 71045; 80076; 83735; 80048; 83880; 83690; 85025 ×2; 85378; 85610; 85730; 83605; 81003; 36415 ×2; 93005; 80053; 84484 ×5; Q0163; J1885 ×2; G0378